=== PATIENT | male | born 1990 | race Caucasian/White ===

== ENCOUNTER 2021-10-01 06:01 | Emergency (ER) | payer SELFPAY ==
[2021-10-01] VITALS (23 sets, daily range): BP systolic 144–169; BP diastolic 80–101; PULSE 80–103; RESP 16–24; TEMP 36.2; O2SAT 95–99
--- NOTE | 2021-10-01 06:07 | W.ED.GENAD ---
Discharge Plan Disposition Patient Disposition: HOME Condition: Improving Discharge Details Clinical Impression: Enteritis Primary Care Provider: Unknown,Unknown ED Provider: Jaguar Chavis Home Meds and New Rx's Prescriptions: New sucralfate [Carafate] 1 gram tablet 1 g PO BID 30 Days Qty: 60 RF: 0 pantoprazole [Protonix] 20 mg tablet,delayed release (DR/EC) 20 mg PO QHS Qty: 30 RF: 0 Continued venlafaxine 225 mg Tablet Extended Release 24hr 225 mg PO HS RF: 0 Discharge Instructions Additional Instructions: Clear liquid progressing to full liquid diet today. May slowly progress to bland diet as tolerated. As we discussed, I recommend you avoid fatty, fried, heavily acidic foods as tomato sauce. We will extract her team to arrange follow-up for you in general surgery clinic this week. You should receive a phone call, but the office #[phone]. We will also to get you a nonurgent follow-up with your primary care at the [facility]. Take medications as prescribed. Protonix to be taken after dinner/before bed. Return if you develop a fever, vomiting, abdominal distention or any other acute concerns. Medical Decision Making <Rocky Chang MD - Last Filed: 10/01/21 08:00> Severely tender abdominal exam that does not localize to any particular quadrant. He is slightly tachycardic and hypertensive. He is afebrile. IV established and fluids started. Morphine given for pain. Laboratory studies sent. CT scan of abdomen pelvis ordered. Patient's labs are fine. Normal lipase, LFTs, WBC and lactic acid. Urine negative. Morphine helped but pain coming back. CT done but not read. Signed out to Dr[facility] plan that is CT negative give IV Protonix and oral Carafate for presumed acid related disease. Patient aware of plan. <Jaguar Chavis MD - Last Filed: 10/01/21 08:39> Patient's CAT scan reveals mucosal thickening and submucosal fat deposition in the duodenum and proximal jejunum. Mildly dilated mid small bowel loops. Colon unremarkable and appendix unremarkable. Enlarged lymph nodes noted. Differential diagnosis includes chronic inflammatory enteritis, intestinal lymphangiectasia. Would also consider etiology such as Crohn's disease. Will continue with Dr. Chang's plan for PPI and Carafate. We will arrange outpatient follow-up with general surgery clinic this week for consideration of upper GI endoscopy/consultation. Patient stable and appropriate for outpatient management time. HPI <Rocky Chang MD - Last Filed: 10/01/21 08:00> General Mode of arrival: ambulatory. Date/Time Provider Initiated Documentation: 10/01/21 06:07. Limitations to Documentation: no limitations. Information obtained by: patient and RN notes reviewed. HPI Narrative: Patient presents to the ED with upper abdominal pain. Pain began last evening after dinner. It has been constant in nature and described as severe at this point. He has not been able to sleep. Pain radiates straight through to the back. He denies any nausea or vomiting. Does not have shortness of breath but it hurts to take a breath because of his abdominal pain. Denies chest pain, cough, fever. Denies any groin or testicular pain. He denies any urinary symptoms. He has had some pain on and off over the past month but nothing like this. No previous surgeries. Related Data Home Medications Medication Instructions Recorded Confirmed pantoprazole [Protonix] 20 mg PO QHS #30 tab 10/01/21 sucralfate [Carafate] 1 g PO BID 30 Days #60 tab 10/01/21 venlafaxine 225 mg PO HS 10/01/21 10/01/21 Previous Rx's Medication Instructions Recorded pantoprazole [Protonix] 20 mg PO QHS #30 tab 10/01/21 sucralfate [Carafate] 1 g PO BID 30 Days #60 tab 10/01/21 Allergies Allergy/AdvReac Type Severity Reaction Status Date / Time No Known Drug Allergies AdvReac Unverified 10/01/21 06:16 Review of Systems <Rocky Chang MD - Last Filed: 10/01/21 08:00> Narrative: 07/07 Review of Systems completed and is negative except as stated above in HPI (Systems reviewed: Const, Eyes, ENT, Resp, CV, GI, , MSK, Skin, Neuro) PFSH <Rocky Chang MD - Last Filed: 10/01/21 08:00> All Active Problems (Updated 10/01/21 @ 08:36 by Jaguar Chavis MD) Enteritis (Acute) Medical History No significant past medical history Surgical History No significant past surgical history Social History Smoking/Tobacco Use Status: Current every day Tobacco Type: cigarettes Smoking risk assessment performed?: Yes Alcohol Intake: current Alcohol Intake frequency: a few times a month Alcohol type: beer Drug use: Never Substance use type: does not use Do you feel safe at home: Yes Do you feel safe in your relationship?: Yes Exam <Rocky Chang MD - Last Filed: 10/01/21 08:00> Narrative Exam Narrative: Const: Obese male in NAD. HEENT: NC/AT. Normal facial exam. Eyes: Normal conjunctiva and sclera. Neck: Supple. Trachea midline. Lungs: Normal respiratory effort. Lungs are clear. Cor: RRR without murmur/gallop. Good radial pulses. GI: Firm abdomen but not distended. Diffusely tender throughout with voluntary guarding. Neuro: A+O x 3. Normal speech, mentation, gait. Cranial nerves II - XII grossly intact. No gross motor or sensory deficit. Ext: No C/C/E. Skin: Warm and dry without rash. Sign Out <Rocky Chang MD - Last Filed: 10/01/21 08:00> Sign Out Data: Sign Out Comment: pending CT read and dispo Last updated by Rocky Chang MD at 10/01/21 08:01
--- NOTE | 2021-10-01 06:15 | DI.CT_ITS ---
Exam(s) CT ABDOMEN PELVIS W EXAM: CT ABDOMEN PELVIS W CLINICAL HISTORY: upper abdominal pain. TECHNIQUE: Imaging Protocol: Axial computed tomography images with coronal and sagittal reformatted images were created and reviewed CONTRAST MATERIAL: Intravenous: Omnipaque 350 Contrast volume:100 ml Oral: / no COMPARISON: No exams were available for comparison FINDINGS: ABDOMEN: Lung Bases: Normal where visualized. Liver: Normal density. No measurable mass. Gallbladder and biliary tract: No radiodense calculus or dilation. Pancreas: Normal density, no abnormal calcifications or inflammatory process. Spleen: Normal. Kidneys: Normal size, contour and axis. No radiodense stones or obstructive uropathy. No masses seen. Adrenal glands: No masses seen. Abdominal Aorta: Abdominal portion non-dilated. Bowel: Mild dilatation jejunum. Submucosal fat deposition in the duodenum and proximal jejunum. The findings could represent enteritis. There are multiple mildly enlarged mesenteric lymph nodes. PELVIS: Bladder: Nearly empty. Apparent wall thickening versus under distention.. No calculi.No focal mass. Bowel: No obstruction or bowel wall thickening. Appendix normal. Peritoneal cavity: No ascites, collection or free air. Bones: Within normal limits for age. Reproductive organs: Within normal limits. Impression: Mildly dilated proximal small bowel wall thickening and mesenteric lymph node enlargement which could indicate enteritis. No definite evidence of obstruction. RADIATION DOSE DELIVERED: 1,291.21mGy.cm Total DLP DATA REPOSITORY: All CT scans at this facility are submitted to the National Radiology Data Registry (NRDR) Dose Index Registry (DIR) with the [employer] (ACR). RADIATION OPTIMIZATION: All CT scans at this facility use at least one of these dose optimization te chniques: automated exposure control; mA and/or kV adjustment per patient size (includes targeted exa ms where dose is matched to clinical indication); or iterative reconstruction.
[2021-10-01] MEDS: Lactated Ringers 1,000 ML 200 ML IV (06:20)
[2021-10-01] MEDS: MORPHine 10 MG/ML VIAL 4 MG IVP (06:30)
[2021-10-01 06:31] LABS: Abs Immature Grans 0.06 10^3/uL (0.0-0.06); Absolute Basophil Count 0.06 10^3/uL (0.0-0.2); Absolute Lymphocyte Count 2.74 10^3/uL (1.2-3.4); Absolute Monocyte Count 1.03 10^3/uL (0.1-0.8); Basophils % 0.6; HGB 15.3 g/dL (13.5-17.5); Immature Grans % 0.6; Lactate 0.7 mmol/L (0.6-1.4); Lymphocytes % 27.7; MCH 31.4 pg (27.0-33.0); MCHC 33.3 % (32.0-36.0); MCV 94.3 fL (80-95); MPV 9.7 fL (8.0-11.0); Monocytes % 10.4; Neutrophils % 58.7; Nucleated RBC 0 %; Platelet Count 253 10^3/uL (130-400); RBC 4.88 10^6/uL (4.36-5.78); RDW-SD 41.8 fL; WBC 9.89 10^3/uL (4.4-10.8)
[2021-10-01 06:35] LABS: Bilirubin Negative (Negative); Blood Negative (Negative); Clarity Clear (Clear); Glucose Negative (Negative); Ketones Negative (Negative); Leukocyte Esterase Negative (Negative); Nitrite Negative (Negative); Specific Gravity 1.015 (1.005-1.025); Urobilinogen 0.2 EU/dL (Up TO 0.2); pH 6.5 (5-8)
[2021-10-01] MEDS: Omnipaque 350 MG/ML 100 ML BTL IJ (06:41)
[2021-10-01 06:48] LABS: ALT 54 U/L (16-63); AST 24 U/L (15-37); Alkaline Phosphatase 81 U/L (46-116); BUN 15 mg/dL (7-18); Bilirubin, Total 0.4 mg/dL (0.2-1.0); Calcium 8.1 mg/dL (8.5-10.1); Chloride 103 mmol/L (98-107); Glucose 99 mg/dL (74-106); Lipase 89 U/L (73-393); Potassium 3.7 mmol/L (3.5-5.1); Sodium 140 mmol/L (136-145); Total Protein 7.5 g/dL (6.4-8.2)
--- NOTE | 2021-10-01 08:00 | DI.VRAD_ITS ---
Addendum created by Rick Whiting MD on 10/01/2021 8:05:51 AM EST: This report contains findings that may be critical to patient care. The findings were verbally communicated via telephone conference with Dr Chavis at 8:02 AM EST on 10/01/2021. The findings were acknowledged and understood. Initial report created on 10/01/2021 8:00:40 AM EST: PROCEDURE INFORMATION: Exam: CT Abdomen And Pelvis With Contrast Exam date and time: 10/01/2021 6:24 AM Age: 31 years old Clinical indication: Other: Upper abd pain TECHNIQUE: Imaging protocol: Computed tomography of the abdomen and pelvis with contrast. COMPARISON: No relevant prior studies available. FINDINGS: Liver: Hepatic fatty infiltration. Gallbladder and bile ducts: Normal. No calcified stones. No ductal dilation. Pancreas: Normal. No ductal dilation. Spleen: Prominent spleen measuring 14 cm. Adrenal glands: Normal. No mass. Kidneys and ureters: Normal. No hydronephrosis. Stomach and bowel: Mucosal thickening and submucosal fat deposition in the duodenum and proximal jejunum. Mildly dilated mid small bowel loops. No mucosal thickening of the colon. Appendix: Normal appendix. Intraperitoneal space: No free fluid or free air. Vasculature: Unremarkable. No abdominal aortic aneurysm. Lymph nodes: Mildly enlarged mesenteric lymph nodes and mesenteric stranding. Urinary bladder: Bladder wall thickening. Reproductive: Unremarkable as visualized. Bones/joints: Unremarkable. No acute fracture. Soft tissues: Unremarkable. IMPRESSION: 1. Mucosal thickening of the proximal small bowel which may reflect chronic inflammatory enteritis or a protein losing enteropathy such as intestinal lymphangiectasia. There are mildly dilated mid small bowel loops which may reflect ileus or partial obstruction. 2. Enlarged mesenteric lymph nodes which can be seen in the setting of mesenteric adenitis or mesenteric panniculitis. Follow-up recommended. 3. Mild splenomegaly. 4. Bladder wall thickening. Correlate for cystitis. Dictated and Authenticated by: Rick Whiting MD. Ordering:ERASTO Hidalgo MD
--- NOTE | 2021-10-01 08:27 | NUR.NOTE ---
Addendum entered by Julisa Clark 10/01/21 08:40: Referral given to Care Management to sent referral to [facility], for proximal bowel thickening/abd pain, non urgent appt. Julisa Clark Original Note: Referral [facility] for follow up within 1 week for proximal bowel thickening/abd pain. Julisa Clark Nursing Note:
[2021-10-01] MEDS: Pantoprazole 40 MG VIAL IVP (09:08)
== END 2021-10-01 09:30 | disposition home or self-care (01) ==
PROVIDERS: Emergency Medicine; Emergency Provider Emergency Medicine
DX: K52.9 Noninfective gastroenteritis and colitis, unspecified (principal); R00.0 Tachycardia, unspecified; R10.9 Unspecified abdominal pain; R03.0 Elevated blood-pressure reading, without diagnosis of hypertension
CPT/HCPCS: 36415; 80053; 83690; 96361; 96374; 96375; 96376; 99285; 74177; 81003; 83605; 85025; 99284; J2270; J3490

== ENCOUNTER 2021-10-06 02:46 | Emergency (ER) | payer OTHER, SELFPAY ==
[2021-10-06 02:52] VITALS: BP 138/94; PULSE 102; RESP 18; TEMP 36.2; O2SAT 99
--- NOTE | 2021-10-06 02:55 | ED.GENADUL_ITS ---
Discharge Plan Disposition Patient Disposition: HOME Condition: Improving Discharge Details Clinical Impression: Abdominal pain Primary Care Provider: Unknown,Unknown ED Provider: Rocky Chang and New Rx's Prescriptions: New dicyclomine 20 mg tablet 20 mg PO QID PRN (Reason: intestinal cramps) Qty: 40 RF: 0 Continued venlafaxine 225 mg Tablet Extended Release 24hr 225 mg PO HS RF: 0 pantoprazole [Protonix] 20 mg tablet,delayed release (DR/EC) 20 mg PO QHS Qty: 30 RF: 0 Changed sucralfate [Carafate] 1 gram tablet 1 g PO QID 30 Days Qty: 40 RF: 0 Discharge Instructions Instructions: Abdominal Pain (ED) Additional Instructions: Use coupons provided to get your medication and begin taking it. Please follow- up with primary care next week. If any issues with prescription or primary care follow-up contact care management for assistance. Return to ED for new or worsening pain, fever, vomiting. Referrals: Care Management [Provider Group] Medical Decision Making Patient returns with episode of sharp, cramping abdominal pain which has been present throughout the evening and night. Seen by me about 5 days ago with similar presentation and abdominal exam. Minimal episodes in between these 2 visits. Eating and drinking more or less normally with no vomiting or diarrhea. 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 Will place IV and recheck laboratory studies. Fluids, ketorolac, Bentyl ordered. Hold off on repeat imaging. Patient's laboratory studies remain normal. Pain resolved and patient much more comfortable after ketorolac and Bentyl. Coupons from [employer] printed out for patient to use at [facility] for pantoprazole, sucralfate and Bentyl. Follow-up with primary care in the next week. Return to ED for fever, vomiting, new or worsening pain, other concerns. HPI General Mode of arrival: ambulatory . Date/Time Provider Initiated Documentation: 10/06/21 02:48 . Limitations to Documentation: no limitations . Information obtained by: patient, RN notes reviewed and old records reviewed . HPI Narrative: Patient returns to ED with sharp crampy abdominal pain, bloated feeling, inability to get comfortable. Patient seen by me about 5 days ago. Laboratory studies unremarkable at that time. CT scan showed suggestion of possible enteritis in the proximal small bowel. 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 He has not followed up with primary care. He has not had constant pain since disch arge. He has had intermittent episodes which resolved. Tonight has been ongoing since about 7 PM. He is able to eat and drink more or less normally. He has had no episodes of vomiting or diarrhea. Pain does radiate to the back at times. He denies having chest pain. He abdominal pain makes it difficult for him to take a deep breath but he does not feel short of breath. No fevers that he is aware of. Related Data Home Medications Medication Instructions Recorded Confirmed venlafaxine 225 mg PO HS 10/01/21 10/06/21 dicyclomine 20 mg PO QID PRN #40 tab 10/06/21 pantoprazole [Protonix] 20 mg PO QHS #30 tab 10/06/21 sucralfate [Carafate] 1 g PO QID 30 Days #40 tab 10/06/21 Previous Rx's Medication Instructions Recorded dicyclomine 20 mg PO QID PRN #40 tab 10/06/21 pantoprazole [Protonix] 20 mg PO QHS #30 tab 10/06/21 sucralfate [Carafate] 1 g PO QID 30 Days #40 tab 10/06/21 Allergies Allergy/AdvReac Type Severity Reaction Status Date / Time No Known Drug Allergies AdvReac Unverified 10/06/21 02:58 General MARIZA: 3 Review of Systems Narrative: As documented in HPI otherwise negative as below. Const: no fever, chills, weakness Resp: no cough, SOB, pleuritic pain CV: no CP, diaphoresis, edema, syncope GI: no nausea, vomiting, diarrhea Neuro: no headache, numbness, focal weakness, confusion PFSH All Active Problems (Updated 10/06/21 @ 04:07 by Rocky Chang MD) Enteritis (Acute) Abdominal pain (Acute) Medical History No significant past medical history Surgical History No significant past surgical history Social History Smoking/Tobacco Use Status: Current every day Tobacco Type: cigarettes Smoking risk assessment performed?: Yes Alcohol Intake: current Alcohol Intake frequency: a few times a month Alcohol type: beer Drug use: Never Substance use type: does not use Do you feel safe at home: Yes Do you feel safe in your relationship?: Yes Exam Narrative Exam Narrative: Const: WDWN male appears uncomfortable. HEENT: NC/AT. Normal facial exam. Eyes: Normal conjunctiva and sclera. Neck: Supple. Trachea midline. Lungs: Normal respiratory effort. Cor: RRR. Good radial pulses. GI: Firm but ND. Diffusely tender. Neuro: A+O x 3. Normal speech, mentation, gait. Cranial nerves II - XII grossly intact. No gross motor or sensory deficit. Ext: No C/C/E. Skin: Warm and dry without rash.
[2021-10-06] MEDS: Ketorolac 30 MG/ML VIAL IVP (03:13)
[2021-10-06] MEDS: Lactated Ringers 1,000 ML 1000 ML IV (03:13)
[2021-10-06] MEDS: Dicyclomine 20 MG TAB PO (03:13)
[2021-10-06 03:18] LABS: Abs Immature Grans 0.03 10^3/uL (0.0-0.06); Absolute Basophil Count 0.04 10^3/uL (0.0-0.2); Absolute Eosinophil Count 0.21 10^3/uL (0.0-0.7); Absolute Lymphocyte Count 2.38 10^3/uL (1.2-3.4); Absolute Monocyte Count 0.74 10^3/uL (0.1-0.8); Absolute Neutrophil Count 4.57 10^3/uL (1.2-6.7); Basophils % 0.5; Eosinophils % 2.6; HGB 15.9 g/dL (13.5-17.5); Immature Grans % 0.4; Lymphocytes % 29.9; MCH 31.4 pg (27.0-33.0); MCHC 33.8 % (32.0-36.0); MCV 92.7 fL (80-95); MPV 9.5 fL (8.0-11.0); Monocytes % 9.3; Neutrophils % 57.3; Nucleated RBC 0 %; Platelet Count 254 10^3/uL (130-400); RBC 5.07 10^6/uL (4.36-5.78); RDW-SD 41.1 fL; WBC 7.97 10^3/uL (4.4-10.8)
[2021-10-06 03:32] LABS: ALT 51 U/L (16-63); AST 30 U/L (15-37); Albumin 3.9 g/dL (3.4-5.0); Alkaline Phosphatase 90 U/L (46-116); Anion Gap 9.7 mmol/L (3-11); BUN 12 mg/dL (7-18); Bilirubin, Direct 0.1 mg/dL (0.0-0.2); Bilirubin, Total 0.3 mg/dL (0.2-1.0); CO2 26.3 mmol/L (21.0-32.0); CREATININE 0.9 mg/dL (0.70-1.30); Calcium 8.4 mg/dL (8.5-10.1); Chloride 103 mmol/L (98-107); Glucose 114 mg/dL (74-106); Lipase 86 U/L (73-393); Potassium 4.1 mmol/L (3.5-5.1); Sodium 139 mmol/L (136-145); Total Protein 7.3 g/dL (6.4-8.2)
[2021-10-06 04:17] VITALS: BP 132/76; PULSE 64; RESP 18; O2SAT 99
== END 2021-10-06 04:16 | disposition home or self-care (01) ==
PROVIDERS: Emergency Provider Emergency Medicine
DX: R10.9 Unspecified abdominal pain (principal)
CPT/HCPCS: 80048; 80076; 83690; 96361; 96374; 99284; 85025; 99283; J1885

== ENCOUNTER 2021-11-26 03:10 | Emergency (ER) | payer OTHER, SELFPAY ==
[2021-11-26] VITALS (14 sets, daily range): BP systolic 126–146; BP diastolic 75–98; PULSE 77–102; RESP 20; TEMP 36.8; O2SAT 96–98
[2021-11-26 03:39] LABS: Abs Immature Grans 0.03 10^3/uL (0.0-0.06); Absolute Basophil Count 0.04 10^3/uL (0.0-0.2); Absolute Monocyte Count 0.73 10^3/uL (0.1-0.8); Absolute Neutrophil Count 3.59 10^3/uL (1.2-6.7); Basophils % 0.5; Eosinophils % 2.7; HCT 45.5 % (40.0-50.0); HGB 15.3 g/dL (13.5-17.5); Immature Grans % 0.4; Lymphocytes % 38.7; MCH 31.3 pg (27.0-33.0); MCHC 33.6 % (32.0-36.0); MPV 9.9 fL (8.0-11.0); Monocytes % 9.7; Nucleated RBC 0 %; Platelet Count 228 10^3/uL (130-400); RBC 4.89 10^6/uL (4.36-5.78); RDW 12.1 % (11.8-14.1); RDW-SD 41.7 fL; WBC 7.49 10^3/uL (4.4-10.8)
[2021-11-26 03:50] LABS: Lipase 84 U/L (73-393)
[2021-11-26] MEDS: Dicyclomine 20 MG TAB PO (03:53)
[2021-11-26 03:54] LABS: ALT 66 U/L (16-63); AST 33 U/L (15-37); Albumin 4.1 g/dL (3.4-5.0); Alkaline Phosphatase 88 U/L (46-116); Anion Gap 7.6 mmol/L (3-11); BUN 12 mg/dL (7-18); Bilirubin, Total 0.5 mg/dL (0.2-1.0); CO2 28.4 mmol/L (21.0-32.0); Calcium 8.3 mg/dL (8.5-10.1); Chloride 106 mmol/L (98-107); Glucose 96 mg/dL (74-106); Potassium 3.8 mmol/L (3.5-5.1); Sodium 142 mmol/L (136-145); Total Protein 7.2 g/dL (6.4-8.2)
[2021-11-26] MEDS: Ketorolac 30 MG/ML VIAL IVP (03:54)
[2021-11-26] MEDS: ACETAMINOPHEN 1,000 MG/100 ML BTL 400 MG IVPB (03:56)
--- NOTE | 2021-11-26 04:00 | RT.EKG_ITS ---
APPROVED REPORT Exam: Resting ECG Reason for Exam: epigastric pain Patient Location: E HR:77 bpm ECG Measurements Heart Rate 77 AXIS NV 142 P 0 QRSd 91 QRS 66 QT 372 T 14 QTc 420 Conclusion Sinus rhythm...normal P axis, V-rate 60- 99 Physician: no stemi, stable
--- NOTE | 2021-11-26 04:01 | W.ED.GENAD ---
Discharge Plan Disposition Patient Disposition: HOME Condition: Good Discharge Details Clinical Impression: Acute epigastric pain Primary Care Provider: Unknown,Unknown ED Provider: Ildefonso Diaz Home Meds and New Rx's Prescriptions: New pantoprazole [Protonix] 40 mg tablet,delayed release (DR/EC) 40 mg PO DAILY Qty: 60 0RF dicyclomine 20 mg tablet 20 mg PO BID Qty: 60 0RF No Action venlafaxine 225 mg Tablet Extended Release 24hr 225 mg PO HS 0RF Discharge Instructions Instructions: Abdominal Pain (ED) Additional Instructions: At this time your laboratory work-up returned normal. Your lipase, gallbladder function, other labs are reassuring. Please avoid greasy foods, spicy foods and tomato-based products. Please take your medications as directed. I have sent them to your pharmacy on file. Please follow-up closely with your surgeon and discuss the scheduled EGD. If you notice any worsening of your symptoms, or any new symptoms such as vomiting, diarrhea, fever, chills, shortness of breath, chest pain, numbness, weakness, or fainting , please return immediately to the emergency department for reevaluation. Please follow up with your primary care provider as soon as possible for reassessment and reevaluation. As always, it was a pleasure participating in your medical care today. Medical Decision Making 31-year-old male with a past medical history of recurrent epigastric pain of unknown etiology presents today for evaluation of recurrent epigastric pain. Patient states that 2 to 3 hours ago he developed a sharp right upper quadrant epigastric tenderness. He states it feels identical but worse than his previous episodes. He does admit to a friend earlier today which was greasy in nature, but denies any other atypical foods. He denies nausea or vomiting. He denies chest pressure of breath. He denies any diarrhea. He denies any urinary complaints. Patient states that he has not been taking the medications that were previous prescribed as he is now out of bed but has been for last few weeks. No other complaints at this time. No other modifying factors. Physical exam demonstrate epigastric tenderness, worse in the right upper quadrant. No flank or CVA tenderness. No lower abdominal tenderness. No distention. Differential includes gastritis, pancreatitis, biliary colic. CT scan has performed on 10/01/2021 demonstrated no significant abnormalities at that time aside for a small amount of small bowel thickening. No other abnormalities. At this time patient is a potential EKG to imaging, will hold off and start with additional therapeutic treatment. Will give Bentyl, NSAIDs, GI cocktail. Will monitor closely and reassess. 4:10 AM Patient was reassessed and he is feeling much better. He is sitting and texting comfortably. Laboratory work-up is returned and is unremarkable. Patient would like to continue to hold off on repeat imaging at this time. We will continue to monitor 4:35 AM Patient was reassessed, patient's pain is nearly completely resolved. Repeat abdominal exam shows no abdominal tenderness. No evidence of epigastric pain, negative Hughes sign. Patient feels much better and would like to continue to hold off on imaging. We discussed risk and benefits of this and the patient understands. Laboratory work-up is returned normal with no significant abnormality. Lipase normal, gallbladder function normal. At this time no evidence of an acute surgical abdomen. No evidence of clinical acute cholecystitis, or other acute surgical intra-abdominal pathologies. At this time with complete resolution of the patient's pain, and unremarkable laboratory work-up I do feel that the patient is stable for discharge. Suspect the patient may have had an episode of acute biliary colic or mild gastritis. Recommend avoidance of aggravating foods, greasy foods, and close follow-up with PCP. Discussed red flags which to return. I have extensively reviewed the treatment plan and discharge instructions with the patient. I have addressed all patient concerns at this time. The patient was made aware of what symptoms to monitor for that would warrant a return to the emergency department. Discussed the plan with the patient, they demonstrate verbal understanding and agreement with our assessment and plan at this time. The documentation in this chart was dictated using [employer] dictation software. Please excuse any dictation errors. HPI General Date/Time Provider Initiated Documentation: 11/26/21 03:13. HPI Narrative: 31-year-old male with a past medical history of recurrent epigastric pain of unknown etiology presents today for evaluation of recurrent epigastric pain. Patient states that 2 to 3 hours ago he developed a sharp right upper quadrant epigastric tenderness. He states it feels identical but worse than his previous episodes. He does admit to a friend earlier today which was greasy in nature, but denies any other atypical foods. He denies nausea or vomiting. He denies chest pressure of breath. He denies any diarrhea. He denies any urinary complaints. Patient states that he has not been taking the medications that were previous prescribed as he is now out of bed but has been for last few weeks. No other complaints at this time. No other modifying factors. Related Data Home Medications Medication Instructions Recorded Confirmed venlafaxine 225 mg tablet,extended 225 mg PO HS 10/01/21 11/26/21 release 24 hr dicyclomine 20 mg tablet 20 mg PO BID #60 tab 11/26/21 pantoprazole 40 mg tablet,delayed 40 mg PO DAILY #60 tab 11/26/21 release (Protonix) Previous Rx's Medication Instructions Recorded dicyclomine 20 mg tablet 20 mg PO BID #60 tab 11/26/21 pantoprazole 40 mg tablet,delayed 40 mg PO DAILY #60 tab 11/26/21 release (Protonix) Allergies Allergy/AdvReac Type Severity Reaction Status Date / Time No Known Drug Allergies AdvReac Unverified 11/26/21 03:23 General Stated Complaint: Abd Prob MARIZA: 3 Review of Systems All systems reviewed & are unremarkable except as noted in HPI and below PFSH All Active Problems (Updated 11/26/21 @ 04:50 by Ildefonso Diaz DO) Acute epigastric pain (Acute) Medical History No significant past medical history Surgical History No significant past surgical history Social History Smoking/Tobacco Use Status: Current every day Tobacco Type: cigarettes Smoking risk assessment performed?: Yes Alcohol Intake: current Alcohol Intake frequency: a few times a month Alcohol type: beer Drug use: Never Substance use type: does not use Current gender identity: male Do you feel safe at home: Yes Do you feel safe in your relationship?: Yes Exam Narrative Exam Narrative: 1.Const: Well-nourished, Well-developed, appearing stated age 2.Eyes: PERRL, no conjunctival injection, and symmetrical lids. 3.ENT: Atraumatic external nose and ears. Moist MM. Neck: Symmetric, trachea midline, No thyromegaly. 4.CVS: +S1/S2, No murmurs or gallops. Peripheral pulses 2+ and equal in all extremities. Brisk capillary refill in all extremities. 5.RESP: Unlabored respiratory effort. Clear to auscultation bilaterally. No wheezes rales or rhonchi 6.GI: Soft, nondistended. No guarding or rebound. Patient does have epigastric tenderness in the left central and right upper regions. Negative Hughes sign, no pain or McBurney's point. Negative Rovsing sign. No flank CVA tenderness. 7.MSK: Normocephalic/Atraumatic, Extremities w/o deformity or ttp No cyanosis or clubbing, Normal movement of all extremities 8.Skin: Warm, Dry. No rashes or lesions. 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 Sensation grossly intact, no focal neurologic deficits. 10.Psych: (AAO) x3. Appropriate mood and affect Course Vital Signs Vital signs: Vital Signs Temperature 36.8 C 11/26/21 03:15 Pulse 102 H 11/26/21 03:15 Respiratory Rate 20 11/26/21 03:15 Blood Pressure 146/98 H 11/26/21 03:15 Pulse Oximetry 97 11/26/21 03:15 Temperature 36.8 C 11/26/21 03:15 Temperature Source Oral 11/26/21 03:15 Pulse 102 H 11/26/21 03:15 Respiratory Rate 20 11/26/21 03:15 Respiratory Effort Non-Labored 11/26/21 03:25 Blood Pressure 146/98 H 11/26/21 03:15 Blood Pressure Position Sitting 11/26/21 03:15 Pulse Oximetry 97 11/26/21 03:15 Oxygen Delivery Method Room Air 11/26/21 03:15 Oxygen Flow Rate 0 11/26/21 03:15 Pain Level 7 11/26/21 03:59 Lab/Test Results Lab/Test Results: Laboratory Tests Range/Units 11/26/21 11/26/21 11/26/21 03:35 03:35 03:35 WBC (4.4-10.8) 10^3/uL 7.49 RBC (4.36-5.78) 10^6/uL 4.89 Hgb (13.5-17.5) g/dL 15.3 Hct (40.0-50.0) % 45.5 MCV (80-95) fL 93.0 MCH (27.0-33.0) pg 31.3 MCHC (32.0-36.0) % 33.6 RDW (11.8-14.1) % 12.1 Plt Count (130-400) 10^3/uL 228 MPV (8.0-11.0) fL 9.9 Immature Gran % 0.4 Neutrophils % 48.0 Lymphocytes % 38.7 Monocytes % 9.7 Eosinophils % 2.7 Basophils % 0.5 Nucleated RBC % % 0 Absolute Neutrophils (1.2-6.7) 10^3/uL 3.59 Absolute Lymphocytes (1.2-3.4) 10^3/uL 2.90 Absolute Monocytes (0.1-0.8) 10^3/uL 0.73 Absolute Eosinophils (0.0-0.7) 10^3/uL 0.20 Absolute Basophils (0.0-0.2) 10^3/uL 0.04 Sodium (136-145) mmol/L 142 Potassium (3.5-5.1) mmol/L 3.8 Chloride (98-107) mmol/L 106 Carbon Dioxide (21.0-32.0) mmol/L 28.4 Anion Gap (3-11) mmol/L 7.6 BUN (7-18) mg/dL 12 Creatinine (0.70-1.30) mg/dL 1.0 Estimated GFR/1.73 m2 (mL/min/1.73m2) >= 60.00 Glucose (74-106) mg/dL 96 Calcium (8.5-10.1) mg/dL 8.3 L Total Bilirubin (0.2-1.0) mg/dL 0.5 AST (15-37) U/L 33 ALT (16-63) U/L 66 H Alkaline Phosphatase (46-116) U/L 88 Total Protein (6.4-8.2) g/dL 7.2 Albumin (3.4-5.0) g/dL 4.1 Lipase (73-393) U/L 84
== END 2021-11-26 05:03 | disposition home or self-care (01) ==
LOC: ER 05:03
PROVIDERS: Emergency Provider Student in an Organized Health Care Education/Training Program
DX: R10.13 Epigastric pain (principal)
CPT/HCPCS: 36415; 80053; 83690; 93005; 96365; 96375; 99284; 85025; 93010; 99283; J0131; J1885

== ENCOUNTER 2022-01-14 00:27 | Emergency (ER) | payer OTHER, SELFPAY ==
[2022-01-14] VITALS (15 sets, daily range): BP systolic 124–139; BP diastolic 75–94; PULSE 69–92; RESP 18; TEMP 36.6; O2SAT 95–100
[2022-01-14] MEDS: Dicyclomine 20 MG TAB PO ×2 (00:50→01:52)
[2022-01-14] MEDS: Ondansetron 4 MG/2 ML VIAL IVP (00:50)
[2022-01-14] MEDS: Ketorolac 30 MG/ML VIAL IVP (00:50)
[2022-01-14 00:51] LABS: Abs Immature Grans 0.01 10^3/uL (0.0-0.06); Absolute Basophil Count 0.04 10^3/uL (0.0-0.2); Absolute Lymphocyte Count 2.94 10^3/uL (1.2-3.4); Absolute Monocyte Count 0.78 10^3/uL (0.1-0.8); Absolute Neutrophil Count 4.48 10^3/uL (1.2-6.7); Basophils % 0.5; Eosinophils % 2.4; HCT 46.6 % (40.0-50.0); HGB 15.5 g/dL (13.5-17.5); Immature Grans % 0.1; Lymphocytes % 34.8; MCH 30.8 pg (27.0-33.0); MCHC 33.3 % (32.0-36.0); MCV 92.5 fL (80-95); MPV 9.9 fL (8.0-11.0); Monocytes % 9.2; Platelet Count 211 10^3/uL (130-400); RBC 5.04 10^6/uL (4.36-5.78); RDW 11.9 % (11.8-14.1); RDW-SD 40.3 fL; WBC 8.45 10^3/uL (4.4-10.8)
[2022-01-14] MEDS: Normal Saline 1,000 ML 1000 ML IV (00:51)
[2022-01-14 01:04] LABS: ALT 62 U/L (16-63); AST 35 U/L (15-37); Albumin 4.3 g/dL (3.4-5.0); Alkaline Phosphatase 102 U/L (46-116); Anion Gap 5.7 mmol/L (3-11); BUN 16 mg/dL (7-18); Bilirubin, Total 0.6 mg/dL (0.2-1.0); CO2 28.3 mmol/L (21.0-32.0); Calcium 8.4 mg/dL (8.5-10.1); Chloride 103 mmol/L (98-107); Glucose 84 mg/dL (74-106); Lipase 76 U/L (73-393); Potassium 3.7 mmol/L (3.5-5.1); Sodium 137 mmol/L (136-145); Total Protein 7.5 g/dL (6.4-8.2)
--- NOTE | 2022-01-14 01:07 | ED.GENADUL_ITS ---
Discharge Plan Disposition Patient Disposition: HOME Condition: Good Discharge Details Clinical Impression: Epigastric discomfort Primary Care Provider: None,None ED Provider: Ildefonso Diaz Home Meds and New Rx's Prescriptions: New dicyclomine 10 mg capsule 10 mg PO BID Qty: 30 0RF pantoprazole [Protonix] 40 mg tablet,delayed release (DR/EC) 40 mg PO DAILY Qty: 90 0RF Continued venlafaxine 225 mg Tablet Extended Release 24hr 225 mg PO HS 0RF Discharge Instructions Instructions: Abdominal Pain (ED) Additional Instructions: At this time your work-up shows no significant abnormalities. Gallbladder, pancreas, electrolytes. As we discussed I suspect it is a combination of increased and/or spicy foods that can exacerbate your symptoms. I have written a new prescription for the Protonix, as well as the Bentyl again. As we discussed, please follow-up closely with your primary care provider to discuss having the EGD performed. If you notice any worsening of your symptoms, or any new symptoms such as vomiting, diarrhea, fever, chills, shortness of breath, chest pain, numbness, weakness, or fainting , please return immediately to the emergency department for reevaluation. Please follow up with your primary care provider as soon as possible for reassessment and reevaluation. As always, it was a pleasure participating in your medical care today. Referrals: Palmira Barraza RN [Emergency Nurse] - Medical Decision Making This is a pleasant 32-year-old male with a past medical history of recurrent epigastric pain. Patient states that about 3 to 4 hours ago he had greasy hot wings, shortly after that he developed a stabbing sensation in his right upper quadrant and epigastric region. It is improved by nothing. It is worsened with food. He denies any vomiting but does admit to nausea. He denies any diarrhea. He denies chest pain, chest pressure, shortness of breath. He denies any urinary complaints. On his last visit he had been prescribed Protonix, as well as some Bentyl, he states that he is run out of these and this seems to be when his symptoms recur. In addition to that he has not been able to follow-up with the recommendations for EGD secondary to insurance reasons. Patient states that his current symptoms are identical to his last few visits where he had the epigastric pain. He denies any other complaints. Exam demonstrates mild epigastric tenderness on palpation, but a negative Hughes sign, no pain at McBurney's point. Patient denies any excessive alcohol intake. Differential is highest for biliary colic or mild pancreatitis. Patient would like to hold off on imaging for the time being as he feels that this feels identical to his previous episodes. We will give GI cocktail, NSAIDs, and Bentyl as this is been notably successful with him in the past. We will monitor closely and reassess. 1:48 AM On reassessment the patient is feeling much better. Pain notably improved. Patient feels well and is requesting to go home. He has been able to tolerate p.o. Laboratory work-up is unremarkable. Repeat exam shows no evidence of an acute surgical abdomen. Suspect patient's symptoms are likely combination of mild gastric ulcer disease, as well as potential biliary colic. Recommend continued avoidance of greasy and spicy foods. Discussed red flags for which to return. I have extensively reviewed the treatment plan and discharge instructions with the patient. I have addressed all patient concerns at this time. The patient was made aware of what symptoms to monitor for that would warrant a return to the emergency department. Discussed the plan with the patient, they demonstrate verbal understanding and agreement with our assessment and plan at this time. The documentation in this chart was dictated using [employer] dictation software. Please excuse any dictation errors. HPI General Date/Time Provider Initiated Documentation: 01/14/22 00:38 . HPI Narrative: This is a pleasant 32-year-old male with a past medical history of recurrent epigastric pain. Patient states that about 3 to 4 hours ago he had greasy hot wings, shortly after that he developed a stabbing sensation in his right upper quadrant and epigastric region. It is improved by nothing. It is worsened with food. He denies any vomiting but does admit to nausea. He denies any diarrhea. He denies chest pain, chest pressure, shortness of breath. He denies any urinary complaints. On his last visit he had been prescribed Protoni x, as well as some Bentyl, he states that he is run out of these and this seems to be when his symptoms recur. In addition to that he has not been able to follow-up with the recommendations for EGD secondary to insurance reasons. Patient states that his current symptoms are identical to his last few visits where he had the epigastric pain. He denies any other complaints. Related Data Home Medications Medication Instructions Recorded Confirmed venlafaxine 225 mg tablet,extended 225 mg PO HS 10/01/21 11/26/21 release 24 hr dicyclomine 10 mg capsule 10 mg PO BID #30 cap 01/14/22 pantoprazole 40 mg tablet,delayed 40 mg PO DAILY #90 tab 01/14/22 release (Protonix) Previous Rx's Medication Instructions Recorded dicyclomine 10 mg capsule 10 mg PO BID #30 cap 01/14/22 pantoprazole 40 mg tablet,delayed 40 mg PO DAILY #90 tab 01/14/22 release (Protonix) Allergies Allergy/AdvReac Type Severity Reaction Status Date / Time No Known Drug Allergies AdvReac Unverified 01/14/22 00:36 General Stated Complaint: Abd Prob MARIZA: 3 Review of Systems All systems reviewed & are unremarkable except as noted in HPI and below PFSH All Active Problems (Updated 01/14/22 @ 01:43 by Ildefonso Diaz DO) Epigastric discomfort (Acute) Medical History No significant past medical history Surgical History No significant past surgical history Social History Smoking/Tobacco Use Status: Current every day Tobacco Type: cigarettes Smoking risk assessment performed?: Yes Alcohol Intake: current Alcohol Intake frequency: a few times a month Alcohol type: beer Drug use: Never Substance use type: does not use Current gender identity: male Do you feel safe at home: Yes Do you feel safe in your relationship?: Yes Exam Narrative Exam Narrative: 1.Const: Well-nourished, Well-developed, appearing stated age 2.Eyes: PERRL, no conjunctival injection, and symmetrical lids. 3.ENT: Atraumatic external nose and ears. Moist MM. Neck: Symmetric, trachea midline, No thyromegaly. 4.CVS: +S1/S2, No murmurs or gallops. Peripheral pulses 2+ and equal in all extremities. Brisk capillary refill in all extremities. 5.RESP: Unlabored respiratory effort. Clear to auscultation bilaterally. No wheezes rales or rhonchi 6.GI: Soft, tenderness in the epigastric region. No tenderness in the lower abdomen. No pain or McBurney's point. Negative Hughes sign. 7.MSK: Normocephalic/Atraumatic, Extremities w/o deformity or ttp No cyanosis or clubbing, Normal movement of all extremities 8.Skin: Warm, Dry. No rashes or lesions. 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 Sensation grossly intact, no focal neurologic deficits. 10.Psych: (AAO) x3. Appropriate mood and affect Course Vital Signs Vital signs: Vital Signs Temperature 36.6 C 01/14/22 00:30 Pulse 92 H 01/14/22 00:30 Respiratory Rate 18 01/14/22 00:30 Blood Pressure 124/94 H 01/14/22 00:30 Pulse Oximetry 100 01/14/22 00:30 Temperature 36.6 C 01/14/22 00:30 Temperature Source Oral 01/14/22 00:30 Pulse 92 H 01/14/22 00:30 Respiratory Rate 18 01/14/22 00:30 Respiratory Effort 01/14/22 00:33 Blood Pressure 124/94 H 01/14/22 00:30 Blood Pressure Position Supine 01/14/22 00:30 Pulse Oximetry 100 01/14/22 00:30 Oxygen Delivery Method Room Air 01/14/22 00:30 Oxygen Flow Rate 0 01/14/22 00:30 Pain Level 9 01/14/22 00:30 Lab/Test Results Lab/Test Results: Laboratory Tests Range/Units 01/14/22 01/14/22 00:40 00:40 WBC (4.4-10.8) 10^3/uL 8.45 RBC (4.36-5.78) 10^6/uL 5.04 Hgb (13.5-17.5) g/dL 15.5 Hct (40.0-50.0) % 46.6 MCV (80-95) fL 92.5 MCH (27.0-33.0) pg 30.8 MCHC (32.0-36.0) % 33.3 RDW (11.8-14.1) % 11.9 Plt Count (130-400) 10^3/uL 211 MPV (8.0-11.0) fL 9.9 Immature Gran % 0.1 Neutrophils % 53.0 Lymphocytes % 34.8 Monocytes % 9.2 Eosinophils % 2.4 Basophils % 0.5 Nucleated RBC % (0.0-0.3) % 0.0 Absolute Neutrophils (1.2-6.7) 10^3/uL 4.48 Absolute Lymphocytes (1.2-3.4) 10^3/uL 2.94 Absolute Monocytes (0.1-0.8) 10^3/uL 0.78 Absolute Eosinophils (0.0-0.7) 10^3/uL 0.20 Absolute Basophils (0.0-0.2) 10^3/uL 0.04 Sodium (136-145) mmol/L 137 Potassium (3.5-5.1) mmol/L 3.7 Chloride (98-107) mmol/L 103 Carbon Dioxide (21.0-32.0) mmol/L 28.3 Anion Gap (3-11) mmol/L 5.7 BUN (7-18) mg/dL 16 Creatinine (0.70-1.30) mg/dL 1.0 Estimated GFR/1.73 m2 (mL/min/1.73m2) >= 60.00 Glucose (74-106) mg/dL 84 Calcium (8.5-10.1) mg/dL 8.4 L Total Bilirubin (0.2-1.0) mg/dL 0.6 AST (15-37) U/L 35 ALT (16-63) U/L 62 Alkaline Phosphatase (46-116) U/L 102 Total Protein (6.4-8.2) g/dL 7.5 Albumin (3.4-5.0) g/dL 4.3 Lipase (73-393) U/L 76
== END 2022-01-14 01:56 | disposition home or self-care (01) ==
PROVIDERS: Emergency Provider Student in an Organized Health Care Education/Training Program
DX: R10.13 Epigastric pain (principal)
CPT/HCPCS: 36415; 80053; 83690; 96361; 96374; 96375; 99284; 85025; 99283; J1885; J2405

== ENCOUNTER 2022-04-27 00:24 | Emergency (ER) | payer OTHER, SELFPAY ==
[2022-04-27] VITALS (24 sets, daily range): BP systolic 132–155; BP diastolic 82–95; PULSE 64–85; RESP 8–20; TEMP 36.7; O2SAT 97–100
--- NOTE | 2022-04-27 01:07 | ED.GENADUL_ITS ---
Discharge Plan Disposition Patient Disposition: HOME Condition: Improving Discharge Details Clinical Impression: Enteritis, Lymphadenopathy, mesenteric Primary Care Provider: None,None ED Provider: Juan Jose Lama Home Meds and New Rx's Prescriptions: New pantoprazole 40 mg tablet,delayed release (DR/EC) 40 mg PO DAILY Qty: 30 0RF No Action venlafaxine 225 mg Tablet Extended Release 24hr 225 mg PO HS dicyclomine 10 mg capsule 10 mg PO BID Qty: 30 0RF pantoprazole [Protonix] 40 mg tablet,delayed release (DR/EC) 40 mg PO DAILY Qty: 90 0RF Discharge Instructions Instructions: Enteritis (ED) Additional Instructions: Care management team will be in contact to establish GI referral for [facility] within the next 1 to 2 weeks. Please take medications as prescribed. Please return to the emergency department for any worsening symptoms. Medical Decision Making 32-year-old male history of gastritis presents with epigastric abdominal pain over the past day. Endorses running out of his pantoprazole. No abdominal surgeries in the past no history of heavy drinking. Patient is hemodynamically stable, nonperitoneal examination. Afebrile. Bedside ultrasound showing some gallbladder sludge/stones with gallbladder thickness of 0.25 cm, no pericholecystic fluid and negative Hughes sign. Likely gastritis versus enteritis versus less likely pancreatitis versus biliary colic. Screening labs fluids antiemetics GI cocktail close reassessment likely will be discharged home with GI referral. Consider need for upper endoscopy and H. pylori testing. 02:23 patient resting comfortably no acute distress did get some relief from medications however still having persistent epigastric pain. Have added CT abdomen pelvis. Disposition pending imaging results. Labs unremarkable at this time. No vomiting in department 5: 37 patient resting comfortably no acute distress. Greatly improved after medications. Evidence of chronic appearing enteritis and mesenteric lymphaden opathy. Will be given GI referral. Will fill prescription for pantoprazole. Home care instructions and return precautions given HPI General Date/Time Provider Initiated Documentation: 04/27/22 00:27 . HPI Narrative: 32-year-old male history of gastritis presents with epigastric discomfort over the past day, endorses running out of his pantoprazole. Denies history of abdominal surgery. We will schedule in the past for upper endoscopy however due to insurance issues never proceeded. Denies heavy drinking. Related Data Home Medications Medication Instructions Recorded Confirmed venlafaxine 225 mg tablet,extended 225 mg PO HS 10/01/21 04/27/22 release 24 hr dicyclomine 10 mg capsule 10 mg PO BID #30 caps 01/14/22 pantoprazole 40 mg tablet,delayed 40 mg PO DAILY #90 tabs 01/14/22 04/27/22 release (Protonix) pantoprazole 40 mg tablet,delayed 40 mg PO DAILY #30 tabs 04/27/22 release Previous Rx's Medication Instructions Recorded dicyclomine 10 mg capsule 10 mg PO BID #30 caps 01/14/22 pantoprazole 40 mg tablet,delayed 40 mg PO DAILY #90 tabs 01/14/22 release (Protonix) pantoprazole 40 mg tablet,delayed 40 mg PO DAILY #30 tabs 04/27/22 release Allergies Allergy/AdvReac Type Severity Reaction Status Date / Time No Known Drug Allergies AdvReac Unverified 04/27/22 00:37 General Stated Complaint: Abd Prob MARIZA: 3 Review of Systems Narrative: Review of Systems Constitutional: negative Eyes: negative ENT: negative Cardiovascular: negative Respiratory: negative Gastrointestinal: Abdominal pain : negative Musculoskeletal: negative Skin: negative Neurologic: negative Psych: negative PFSH All Active Problems (Updated 04/27/22 @ 05:40 by Juan Jose Lama MD) Enteritis (Acute) Lymphadenopathy, mesenteric (Acute) Medical History No significant past medical history Surgical History No significant past surgical history Social History Smoking/Tobacco Use Status: Current every day Tobacco Type: cigarettes Smoking risk assessment performed?: Yes Alcohol Intake: current Alcohol Intake frequency: a few times a month Alcohol type: beer Drug use: Never Substance use type: does not use Current gender identity: male Do you feel safe at home: Yes Do you feel safe in your relationship?: Yes Exam Narrative Exam Narrative: Physical Examination General: alert, awake, cooperative, resting comfortably, no acute distress HEENT: normocephalic, atraumatic; PERRL, EOM intact, conjunctiva normal; no nasal discharge; moist mucous membranes, oral and pharyngeal mucosa normal, tolerating secretions Neck: supple, trachea midline; full ROM Chest: normal to inspection Respiratory: normal respiratory effort, speaking in full sentences, clear to auscultation, no wheezing, rales or rhonchi Cardiac: regular rate, regular rhythm, S1S2 intact, no murmurs rubs or gallops GI: abdomen soft, non-tender, non-distended; no palpable mass or hepatosplenomegaly Skin: no lesions, rashes or trauma appreciated Neuro: AAOx3, normal speech, moving all extremities Psych: Appropriate mood and affect Course Vital Signs Vital signs: Vital Signs Temperature 36.7 C 04/27/22 00:30 Pulse 77 04/27/22 00:30 Respiratory Rate 18 04/27/22 00:30 Blood Pressure 140/85 04/27/22 00:30 Pulse Oximetry 100 04/27/22 00:30 Temperature 36.7 C 04/27/22 00:30 Temperature Source Temporal Artery Scan 04/27/22 00:30 Pulse 77 04/27/22 00:30 Respiratory Rate 18 04/27/22 00:30 Respiratory Effort Non-Labored 04/27/22 00:35 Blood Pressure 140/85 04/27/22 00:30 Blood Pressure Position Supine 04/27/22 00:30 Pulse Oximetry 100 04/27/22 00:30 Oxygen Delivery Method Room Air 04/27/22 00:30 Oxygen Flow Rate 0 04/27/22 00:30 Pain Level 9 04/27/22 00:30
[2022-04-27 01:26] LABS: Abs Immature Grans 0.02 10^3/uL (0.0-0.06); Absolute Basophil Count 0.03 10^3/uL (0.0-0.2); Absolute Eosinophil Count 0.22 10^3/uL (0.0-0.7); Absolute Lymphocyte Count 2.59 10^3/uL (1.2-3.4); Basophils % 0.4; Eosinophils % 3.2; HCT 43.8 % (40.0-50.0); Immature Grans % 0.3; Lymphocytes % 37.2; MCH 31.8 pg (27.0-33.0); MCHC 34.2 % (32.0-36.0); MCV 93 fL (80-95); MPV 10.6 fL (8.0-11.0); Monocytes % 10.1; Neutrophils % 48.8; Platelet Count 208 10^3/uL (130-400); RBC 4.71 10^6/uL (4.36-5.78); RDW 12.2 % (11.8-14.1); RDW-SD 42.1 fL; WBC 6.96 10^3/uL (4.4-10.8)
[2022-04-27] MEDS: Mylanta Suspension 30 ML CUP PO (01:27)
[2022-04-27] MEDS: Famotidine 20 MG/2 ML VIAL IVP (01:27)
[2022-04-27] MEDS: Lidocaine 2% Viscous 15 ML CUP PO (01:27)
[2022-04-27] MEDS: Normal Saline 1,000 ML 1000 ML IV (01:27)
[2022-04-27] MEDS: Ondansetron 4 MG/2 ML VIAL IVP (01:28)
[2022-04-27] MEDS: PANTOPRAZOLE 80 MG in Normal Saline 100 ML 10 MG IV (01:28)
[2022-04-27 01:41] LABS: ALT 42 U/L (16-63); AST 22 U/L (15-37); Alkaline Phosphatase 97 U/L (46-116); Anion Gap 4.4 mmol/L (3-11); BUN 13 mg/dL (7-18); Bilirubin, Total 0.3 mg/dL (0.2-1.0); CO2 29.6 mmol/L (21.0-32.0); CREATININE 0.9 mg/dL (0.70-1.30); Calcium 8.7 mg/dL (8.5-10.1); Chloride 103 mmol/L (98-107); Glucose 88 mg/dL (74-106); Lipase 76 U/L (73-393); Sodium 137 mmol/L (136-145); Total Protein 7.4 g/dL (6.4-8.2)
--- NOTE | 2022-04-27 02:15 | DI.CT_ITS ---
Exam(s) CT ABDOMEN PELVIS WO EXAM: CT ABDOMEN PELVIS WO CLINICAL HISTORY: epigastric abd pain. TECHNIQUE: Imaging Protocol: Axial computed tomography images with coronal and sagittal reformatted images were created and reviewed. Oral: yes / no COMPARISON: CT CT ABDOMEN PELVIS W from 10/01/2021 FINDINGS: Exam is somewhat limited without oral and IV contrast. Lung Bases: Normal where visualized. Liver: Mild fatty infiltration. No measurable mass. Gallbladder and biliary tract: No radiodense calculus or dilation. Pancreas: Normal density, no abnormal calcifications or inflammatory process. Spleen: Normal. Upper limits of normal size at 13 cm in length. Kidneys: Normal size, contour and axis. No radiodense stones or obstructive uropathy. No masses seen. Adrenal glands: No masses seen. Lymph nodes: Multiple enlarged left upper quadrant mesenteric lymph nodes with mild increase in size compared to prior. Abdominal Aorta: Abdominal portion non-dilated. Bladder: Symmetric distention, no gross wall thickening. Bowel: Mildly dilated loops of small bowel are again noted in the left side of the abdomen without de finite transition point. This is similar in location and appearance to the previous exam. There is again noted to be some subcu mucosal fat deposition in the proximal jejunum. There are multiple mayte cent enlarged mesenteric lymph nodes. Appendix normal. Colon unremarkable. Peritoneal cavity: No ascites, collection or mesenteric inflammatory response. Reproductive organs: Within normal limits. Bones: Within normal limits. IMPRESSION: Similar appearance dilated left upper quadrant small bowel in adjacent mesenteric lymphadenopathy. T he findings are suspicious for chronic inflammatory process or protein losing enteropathy. RADIATION DOSE DELIVERED: 904.46mGy.cm Total DLP DATA REPOSITORY: All CT scans at this facility are submitted to the National Radiology Data Registry (NRDR) Dose Index Registry (DIR) with the [employer] (A[employer]). RADIATION OPTIMIZATION: All CT scans at this facility use at least one of these dose optimization te chniques: automated exposure control; mA and/or kV adjustment per patient size (includes targeted exa ms where dose is matched to clinical indication); or iterative reconstruction.
[2022-04-27 02:49] LABS: Bilirubin Negative (Negative); Blood Negative (Negative); Clarity Clear (Clear); Glucose Negative (Negative); Ketones Negative (Negative); Leukocyte Esterase Negative (Negative); Nitrite Negative (Negative); Specific Gravity 1.015 (1.005-1.025); Urobilinogen 0.2 EU/dL (Up TO 0.2)
--- NOTE | 2022-04-27 05:34 | DI.VRAD_ITS ---
PROCEDURE INFORMATION: Exam: CT Abdomen And Pelvis Without Contrast Exam date and time: 04/27/2022 2:39 AM Age: 32 years old Clinical indication: Abdominal pain; Epigastric; Additional info: Epigastric pain TECHNIQUE: Imaging protocol: Computed tomography of the abdomen and pelvis without contrast. Radiation optimization: All CT scans at this facility use at least one of these dose optimization techniques: automated exposure control; mA and/or kV adjustment per patient size (includes targeted exams where dose is matched to clinical indication); or iterative reconstruction. COMPARISON: CT ABDOMEN PELVIS W 10/01/2021 6:31 AM FINDINGS: Lungs: Visualized lung bases are clear. No pleural effusions. Liver: Mild hepatic steatosis. Gallbladder and bile ducts: Unremarkable. No calcified gallstones. No intrahepatic or extrahepatic biliary ductal dilation. Pancreas: Unremarkable. Spleen: The spleen is again noted to be mildly enlarged, measuring 13.6 cm in maximum diameter (previously 13.9 cm). Otherwise unremarkable. Adrenal glands: Unremarkable. Kidneys and ureters: The kidneys are normal and symmetric in size, without hydronephrosis, calcifications, or contour-deforming masses. No calcifications are identified in the ureters, which are normal in caliber. Stomach and bowel: The stomach is largely decompressed and therefore not well assessed. Increased submucosal fat deposition is again noted in the duodenum and in the proximal jejunum, which are otherwise difficult to characterize as they are essentially collapsed, though mucosal thickening is suspected. There is persistent haziness and stranding of the mesenteric fat adjacent to these abnormal-appearing bowel loops. Distal to this are several relatively prominent jejunal loops which are distended with fluid, nonspecific. A similar appearance of the bowel was present on the 10/01/[address] Appendix: A nondilated appendix is identified. Intraperitoneal space: Unremarkable. No ascites, fluid collection, or pneumoperitoneum. Retroperitoneal space: Unremarkable. No retroperitoneal collection or mass. Vasculature: Unremarkable. The abdominal aorta is normal in caliber. Lymph nodes: Multiple mildly enlarged and top-normal size mesenteric lymph nodes are again identified in the left upper quadrant, the largest measuring up to 1.4 cm on axial image 43 (previously 1.1 cm). Urinary bladder: Moderately distended. Otherwise unremarkable. Reproductive: Unremarkable as visualized. Bones/joints: No suspicious osseous lesions. Soft tissues: Tiny fat-containing umbilical hernia. IMPRESSION: 1. Persistent mucosal thickening in the proximal small bowel with adjacent mesenteric fat stranding, similar to a previous CT from 10/01/2021. Primary differential considerations include a chronic inflammatory enteritis or a protein-losing enteropathy, as suggested previously. 2. Left upper quadrant mesenteric lymphadenopathy, nonspecific though suspected to be reactive, slightly increased since 10/01/2021. 3. Persistent mild splenomegaly. Dictated and Authenticated by: Lesly Perez MD. Ordering:PAYTON Ingram MD
--- NOTE | 2022-04-27 05:46 | NUR.NOTE ---
Referral to Care Management for referral to [facility] for abd pain work up in 1-2 weeks.Nursing Note:
--- NOTE | 2022-04-28 11:18 | CMACTNOTE_ITS ---
- If Service Date Differs Date of service: 04/27/22 Time of Service: 11:18 Care Management Activity Note Kavon is seen in the ED for epigastric pain. At the request of ED provider, CM completes a referral to [facility] on 04/27/22 but the referral is awaiting the provider's signature. Once the referral is signed, it will be faxed to [facility].
== END 2022-04-27 05:49 | disposition home or self-care (01) ==
PROVIDERS: Emergency Provider Emergency Medicine
DX: K52.9 Noninfective gastroenteritis and colitis, unspecified (principal); R59.0 Localized enlarged lymph nodes; F17.210 Nicotine dependence, cigarettes, uncomplicated
CPT/HCPCS: 80053; 83690; 96365; 96375; 99284; 74176; 81003; 85025; J2405

== ENCOUNTER 2022-08-21 05:19 | Emergency (ER) | payer OTHER, SELFPAY ==
[2022-08-21 05:23] VITALS: BP 161/100; PULSE 81; RESP 16; TEMP 36.8; O2SAT 100
[2022-08-21] MEDS: Normal Saline 1,000 ML 1000 ML IV (05:45)
[2022-08-21 05:47] LABS: Abs Immature Grans 0.01 10^3/uL (0.0-0.06); Absolute Basophil Count 0.04 10^3/uL (0.0-0.2); Absolute Eosinophil Count 0.14 10^3/uL (0.0-0.7); Absolute Lymphocyte Count 2.55 10^3/uL (1.2-3.4); Absolute Neutrophil Count 4.25 10^3/uL (1.2-6.7); Basophils % 0.5; Eosinophils % 1.8; HCT 46.3 % (40.0-50.0); HGB 15.6 g/dL (13.5-17.5); Immature Grans % 0.1; Lymphocytes % 33.6; MCH 31.1 pg (27.0-33.0); MCHC 33.7 % (32.0-36.0); MCV 92 fL (80-95); Monocytes % 7.9; Neutrophils % 56.1; Platelet Count 222 10^3/uL (130-400); RBC 5.02 10^6/uL (4.36-5.78); RDW 12.1 % (11.8-14.1); RDW-SD 41.2 fL; WBC 7.59 10^3/uL (4.4-10.8)
[2022-08-21] MEDS: Famotidine 20 MG/2 ML VIAL IVP (05:50)
[2022-08-21] MEDS: Ondansetron 4 MG/2 ML VIAL IVP (05:50)
--- NOTE | 2022-08-21 05:50 | ED.GENADUL_ITS ---
Discharge Plan Disposition Patient Disposition: Home Condition: Improving Discharge Details Clinical Impression: Gastritis Primary Care Provider: None,None ED Provider: Juan Jose Lama Home Meds and New Rx's Prescriptions: New pantoprazole 40 mg tablet,delayed release (DR/EC) 40 mg PO DAILY Qty: 30 0RF No Action venlafaxine 225 mg Tablet Extended Release 24hr 225 mg PO HS Discharge Instructions Instructions: Gastritis (ED) Additional Instructions: We are providing follow-up referral to [facility] gastroenterology team. Please follow-up with your primary care physician as well. Return to the emergency department for any worsening symptoms Medical Decision Making 31-year-old male history of recurrent abdominal pain presents with epigastric abdominal discomfort rating to his back associate with nausea no vomiting, normal bowel movements. Afebrile nontoxic however appears mildly uncomfortable. Abdomen soft nontender nondistended nonperitoneal. Consider gastritis versus esophagitis versus enteritis versus biliary colic versus less likely pancreatit is. Screening labs, trial medications. Close reassessment disposition pending results 7: 00 patient resting comfortably feeling much better after medications. Likely component of gastritis. Will refer patient to [facility] GI. Sign Out No HPI General Date/Time Provider Initiated Documentation: 08/21/22 05:22 . HPI Narrative: 32-year-old male history of recurrent abdominal discomfort, currently being scheduled for GI follow-up presents with cute onset epigastric discomfort rating to his back associate with nausea no vomiting. Normal bowel movements. Related Data Home Medications Medication Instructions Recorded Confirmed venlafaxine 225 mg tablet,extended 225 mg PO HS 10/01/21 08/21/22 release 24 hr pantoprazole 40 mg tablet,delayed 40 mg PO DAILY #30 tabs 08/21/22 release Previous Rx's Medication Instructions Recorded pantoprazole 40 mg tablet,delayed 40 mg PO DAILY #30 tabs 08/21/22 release Allergies Allergy/AdvReac Type Severity Reaction Status Date / Time No Known Drug Allergies AdvReac Unverified 08/21/22 05:26 General Stated Complaint: Abd Prob MARIZA: 3 Review of Systems Narrative: Review of Systems Constitutional: negative Eyes: negative ENT: negative Cardiovascular: negative Respiratory: negative Gastrointestinal: Abdominal pain, nausea : negative Musculoskeletal: negative Skin: negative Neurologic: negative Psych: negative PFSH All Active Problems (Updated 08/21/22 @ 07:00 by Juan Jose Lama MD) Gastritis (Acute) Medical History No significant past medical history Surgical History No significant past surgical history Social History Smoking/Tobacco Use Status: Current every day Tobacco Type: cigarettes Smoking risk assessment performed?: Yes Alcohol Intake: current Alcohol Intake frequency: a few times a month Alcohol type: beer Drug use: Never Substance use type: does not use Current gender identity: male Do you feel safe at home: Yes Do you feel safe in your relationship?: Yes Exam Narrative Exam Narrative: Physical Examination General: alert, awake, cooperative, appears uncomfortable HEENT: normocephalic, atraumatic; PERRL, EOM intact, conjunctiva normal; no nasal discharge; moist mucous membranes, oral and pharyngeal mucosa normal, tolerating secretions Neck: supple, trachea midline; full ROM Chest: normal to inspection Respiratory: normal respiratory effort, speaking in full sentences, clear to auscultation, no wheezing, rales or rhonchi Cardiac: regular rate, regular rhythm, S1S2 intact, no murmurs rubs or gallops GI: abdomen soft, non-tender, non-distended; no palpable mass or hepatosplenomegaly Skin: no lesions, rashes or trauma appreciated Neuro: AAOx3, normal speech, moving all extremities Psych: Appropriate mood and affect Course Vital Signs Vital signs: Vital Signs Temperature 36.8 C 08/21/22 05:23 Pulse 81 08/21/22 05:23 Respiratory Rate 16 08/21/22 05:23 Blood Pressure 161/100 H 08/21/22 05:23 Pulse Oximetry 100 08/21/22 05:23 Temperature 36.8 C 08/21/22 05:23 Temperature Source Oral 08/21/22 05:23 Pulse 81 08/21/22 05:23 Respiratory Rate 16 08/21/22 05:23 Respiratory Effort 08/21/22 05:23 Blood Pressure 161/100 H 08/21/22 05:23 Blood Pressure Position Sitting 08/21/22 05:23 Pulse Oximetry 100 08/21/22 05:23 Oxygen Delivery Method Room Air 08/21/22 05:23 Oxygen Flow Rate 0 08/21/22 05:23 Pain Level 9 08/21/22 05:23 Lab/Test Results Lab/Test Results: Laboratory Tests Range/Units 08/21/22 05:35 WBC (4.4-10.8) 10^3/uL 7.59 RBC (4.36-5.78) 10^6/uL 5.02 Hgb (13.5-17.5) g/dL 15.6 Hct (40.0-50.0) % 46.3 MCV (80-95) fL 92 MCH (27.0-33.0) pg 31.1 MCHC (32.0-36.0) % 33.7 RDW (11.8-14.1) % 12.1 Plt Count (130-400) 10^3/uL 222 MPV (8.0-11.0) fL 10.0 Immature Gran % 0.1 Neutrophils % 56.1 Lymphocytes % 33.6 Monocytes % 7.9 Eosinophils % 1.8 Basophils % 0.5 Nucleated RBC % (0.0-0.3) % 0.0 Absolute Neutrophils (1.2-6.7) 10^3/uL 4.25 Absolute Lymphocytes (1.2-3.4) 10^3/uL 2.55 Absolute Monocytes (0.1-0.8) 10^3/uL 0.60 Absolute Eosinophils (0.0-0.7) 10^3/uL 0.14 Absolute Basophils (0.0-0.2) 10^3/uL 0.04
[2022-08-21 06:02] LABS: ALT 46 U/L (16-63); AST 26 U/L (15-37); Albumin 4.2 g/dL (3.4-5.0); Alkaline Phosphatase 105 U/L (46-116); Anion Gap 7.8 mmol/L (3-11); BUN 8 mg/dL (7-18); Bilirubin, Total 0.6 mg/dL (0.2-1.0); CO2 29.2 mmol/L (21.0-32.0); CREATININE 0.9 mg/dL (0.70-1.30); Calcium 8.5 mg/dL (8.5-10.1); Chloride 103 mmol/L (98-107); Estimated GFR 114.93 (mL/min/1.73m2); Glucose 88 mg/dL (74-106); Lipase 71 U/L (73-393); Sodium 140 mmol/L (136-145); Total Protein 7.4 g/dL (6.4-8.2)
[2022-08-21] MEDS: Mylanta Suspension 30 ML CUP PO (06:07)
[2022-08-21] MEDS: Lidocaine 2% Viscous 15 ML CUP PO (06:08)
--- NOTE | 2022-08-21 07:04 | NUR.NOTE ---
Nursing Note: Referral Given to Care Managers - Per Dr Casiano - Patient needs referral to [facility] within the next 1-2 weeks for Gastritis - info provided to care managers
== END 2022-08-21 07:24 | disposition home or self-care (01) ==
PROVIDERS: Emergency Provider Emergency Medicine
DX: K29.00 Acute gastritis without bleeding (principal)
CPT/HCPCS: 36415; 80053; 83690; 96361; 96374; 96375; 99284; 85025; 99283; J2405

== ENCOUNTER 2023-11-01 08:47 | Emergency (ER) | payer OTHER, SELFPAY ==
[2023-11-01 08:56] VITALS: BP 143/93; PULSE 97; RESP 16; TEMP 37; O2SAT 98
[2023-11-01] MEDS: Cellulose,Oxidized 2X3 PKT 1 EACH MC (09:19)
--- NOTE | 2023-11-01 09:22 | ED.GENADUL_ITS ---
HPI General Date/Time Provider Initiated Documentation: 11/01/23 09:02 . 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 Quality described as stinging pain, no radiation to fever, numbness/tingling, endorses mild active bleeding, believes his Tdap is UTD. Severity is described as moderate. Palliating factors include direct pressure with relief of active bleeding. Provoking factors include nothing specific. Patient not anticoagulated. Related Data Home Medications Medication Instructions Recorded Confirmed venlafaxine 225 mg tablet,extended 225 mg PO HS 10/01/21 11/01/23 release 24 hr omeprazole 20 mg tablet,delayed 20 mg PO DAILY 11/01/23 11/01/23 release Allergies Allergy/AdvReac Type Severity Reaction Status Date / Time No Known Drug Allergies AdvReac Other (See Unverified 11/01/23 10:54 Comment) General Stated Complaint: Laceration MARIZA: 4 Review of Systems All systems reviewed & are unremarkable except as noted in HPI and below Exam Narrative Exam Narrative: GENERAL APPEARANCE: Well-nourished, non-toxic, awake and alert, atraumatic, no acute distress. SKIN: Warm, pink, dry, intact, without rashes/lesions/ulcerations. HEAD: Normocephalic, atraumatic, normal hair distribution for gender/age. EYES: Pupils PERRLA, EOMs intact without nystagmus, normal conjunctiva, no exudates on lids/lashes. ENT: Nares patent, no circumoral cyanosis, no facial swelling NECK: Supple, trachea midline, painless cervical ROM. LUNGS/CHEST: Non-labored respirations, normal A/P diameter, symmetrical expansion, no chest wall deformity HEART (CV/PV): Regular rate, L radial pulse 2+, no peripheral edema, no JVD. ABDOMEN: Soft, non-distended, no guarding. MSK: Normal ROM, no swelling/deformity to bilateral UEs or LEs, moving all extremities without weakness, no cyanosis, spine midline without tenderness, normal curvature. L Hand: small < 1cm avulsion at distal fingertip of L index finger, no nail bed involvement, minor capillary bleeding, NV intact diffusely, no other trauma NEURO: Mental Status AAOx4 - alert to person, place, time, events No facial droop, no forehead involvement. Motor: No focal weakness - strength 5/5 in bilateral UEs and LEs, proximal and distal, symmetric. Sensory: sensation intact to light touch globally. Gait normal: patient ambulated without ataxia into ED room. PSYCH: euthymic, cooperative, pleasant, appropriate speech Course Vital Signs Vital signs: Vital Signs Temperature 37 C 11/01/23 08:56 Pulse 97 H 11/01/23 08:56 Respiratory Rate 16 11/01/23 08:56 Blood Pressure 143/93 H 11/01/23 08:56 Pulse Oximetry 98 11/01/23 08:56 Temperature 37 C 11/01/23 08:56 Temperature Source Skin 11/01/23 08:56 Pulse 97 H 11/01/23 08:56 Respiratory Rate 16 11/01/23 08:56 Respiratory Effort Normal 11/01/23 09:21 Blood Pressure 143/93 H 11/01/23 08:56 Blood Pressure Position Sitting 11/01/23 08:56 Pulse Oximetry 98 11/01/23 08:56 Oxygen Delivery Method Room Air 11/01/23 08:56 Oxygen Flow Rate 0 11/01/23 08:56 Pain Level 8 11/01/23 08:56 Medical Decision Making This dictation utilizes [id number] dictation software and may contain unedited grammatical errors. 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 Patients' medical history: negative, otherwise healthy. Family and social history: noncontributory. Pertinent exam findings / vital signs include L Hand: small <1cm avulsion at distal fingertip of L index finger, no nail bed involvement, minor capillary bleeding, NV intact diffusely, no other trauma. Differential / pathologies of concern include avlusion laceration, not NV compromise. Diagnostic studies of: -none. Interventions of: -surgicell simple dressing. ED Course/Assessment/Plan: 33-year-old male presents with a small subcentimeter laceration avulsion to his left distal fingertip without nailbed involvement, this was dressed with a simple Surgicel layer under Telfa and Coban wrap. Counseled on return for signs of infection and to change the dressing daily and keep the area clean and dry. I counseled him on following up with his regular doctor to confirm his Tdap is up-to-date but that he could wait a day or 2 to obtain this if it was out of date. Findings not consistent with neurovascular compromise or nailbed involvement. Disposition of laceration of left index finger. Patient verbalized understanding of the plan and return to ED criteria and engaged in shared decision making. Medical Records Medical records reviewed: Yes I reviewed the patient's medical records. Quality:SDOH Health Related Social Needs: No Data to Display PFSH All Active Problems (Updated 11/01/23 @ 09:25 by SUNDAY Ospina) Laceration of left index finger (Acute) Medical History No significant past medical history Surgical History No significant past surgical history Social History Smoking/Tobacco Use Status: Current every day Tobacco Type: cigarettes Smoking risk assessment performed?: Yes Alcohol Intake: current Alcohol Intake frequency: a few times a month Alcohol type: beer Drug use: Never Substance use type: does not use Current gender identity: male Do you feel safe at home: Yes Do you feel safe in your relationship?: Yes Discharge Plan Disposition Patient Disposition: Home Condition: Stable Discharge Details Clinical Impression: Laceration of left index finger Primary Care Provider: None,None ED Provider: Ildefonso Rivas Home Meds and New Rx's Prescriptions: No Action venlafaxine 225 mg Tablet Extended Release 24hr 225 mg PO HS omeprazole 20 mg tablet,delayed release (DR/EC) 20 mg PO DAILY Discharge Instructions Instructions: Finger Laceration (ED) Additional Instructions: You were seen in the emergency department for the skin avulsion/laceration of your left index finger, we dressed it with a Surgicel dressing which is a hemostatic dressing, I placed a nonstick over the top of that and then some Coban wrap. You will need to change this dressing tomorrow, by that time it sh ould be fine with simple bandages, if it does start bleeding a little bit please just elevate and put some gentle pressure on the area for 20 to 30 minutes and that should stop bleeding. Please watch for signs of infection including spreading redness from the area, drainage of pus from the area, red streaking up the hand or arm, fever and return to the ED for any symptoms. Stand Alone Forms: Work Release Discharge Data Discharge Date/Time-TO BE ENTERED AT DEPARTURE: 11/01/23 09:34
[2023-11-01] MEDS: Acetaminophen 500 MG TAB 1000 MG PO (09:33)
[2023-11-01] MEDS: Ketorolac 10 MG TAB PO (09:33)
--- NOTE | 2023-11-05 08:41 | NUR.NOTE ---
Patient called asking for a more detailed work note. A writted note made out stating limited use of left hand in light duty, keep bandages on for 1 week. Faxed to , and copy mailed to patient. Nursing Note:
== END 2023-11-01 09:34 | disposition home or self-care (01) ==
PROVIDERS: Emergency Provider Physician Assistant
DX: S61.211A Laceration without foreign body of left index finger without damage to nail, initial encounter (principal); W26.0XXA Contact with knife, initial encounter
CPT/HCPCS: 99282; 99283

== ENCOUNTER 2023-12-29 04:10 | Emergency (ER) | payer OTHER, SELFPAY ==
[2023-12-29] VITALS (24 sets, daily range): BP systolic 123–128; BP diastolic 60–74; PULSE 72–103; RESP 15–33; TEMP 37.1; O2SAT 98–99
--- NOTE | 2023-12-29 04:00 | RT.EKG_ITS ---
APPROVED REPORT Exam: Resting ECG Reason for Exam: chest pain Patient Location: E HR:90 bpm ECG Measurements Heart Rate 90 AXIS PA 136 P 12 QRSd 86 QRS 43 QT 345 T 29 QTc 421 Conclusion Sinus rhythm... V-rate 60- [address] segment or T wave abnormalities to suggest occlusive PR
--- NOTE | 2023-12-29 04:15 | DI.RAD_ITS ---
Exam(s) XR CHEST 2V PA LATERAL EXAM: XR CHEST 2V PA LATERAL CLINICAL HISTORY: left sided chest pain. TECHNIQUE: 2D digital imaging was performed. COMPARISON: No exams were available for comparison FINDINGS: 2 views: Heart size is normal. The mediastinum is not widened. Lungs are clear. No infiltrates nor pleural effusions. IMPRESSION: No acute pulmonary findings. DATA REPOSITORY: RADIATION DOSE DELIVERED:
[2023-12-29] MEDS: Acetaminophen 500 MG TAB 1000 MG PO (04:30)
[2023-12-29] MEDS: Ketorolac 15 MG/ML VIAL IVP (04:31)
[2023-12-29 04:33] LABS: Abs Immature Grans 0.01 10^3/uL (0.0-0.06); Absolute Basophil Count 0.03 10^3/uL (0.0-0.2); Absolute Eosinophil Count 0.17 10^3/uL (0.0-0.7); Absolute Monocyte Count 0.67 10^3/uL (0.1-0.8); Absolute Neutrophil Count 4.08 10^3/uL (1.2-6.7); Basophils % 0.4; Eosinophils % 2.5; HCT 42.7 % (40.0-50.0); HGB 14.3 g/dL (13.5-17.5); Immature Grans % 0.1; Lymphocytes % 26.6; MCH 31.4 pg (27.0-33.0); MCHC 33.5 % (32.0-36.0); MCV 94 fL (80-95); MPV 9.9 fL (8.0-11.0); Monocytes % 9.9; Neutrophils % 60.5; Platelet Count 187 10^3/uL (130-400); RBC 4.56 10^6/uL (4.36-5.78); RDW-SD 41.5 fL; WBC 6.76 10^3/uL (4.4-10.8)
--- NOTE | 2023-12-29 04:41 | ED.GENADUL_ITS ---
Discharge Plan Disposition Patient Disposition: Home Condition: Good Discharge Details Clinical Impression: Musculoskeletal chest pain Primary Care Provider: Unknown,Unknown ED Provider: Kathya Baeza Home Meds and New Rx's Prescriptions: New lidocaine 5 % adhesive patch,medicated 1 patch topical DAILY Qty: 15 0RF Rx Instructions: leave on most painful area for up to 12 hrs Continued cyclobenzaprine 5 mg tablet 5 mg PO DAILY Patient Comments: PRN venlafaxine 225 mg Tablet Extended Release 24hr 225 mg PO HS omeprazole 20 mg tablet,delayed release (DR/EC) 20 mg PO DAILY Discharge Instructions Instructions: Chest Pain (ED) Additional Instructions: Tylenol and ibuprofen over the counter for pain; follow the directions on the bottle. Lidocaine patch once a day; leave in place for 12 hours. Call your primary care doctor on Sunday to schedule an appointment within the next 5 days to followup on your visit today. Return to the emergency department for new or worsening symptoms including new/different/worse pain, difficulty breathing, feeling like you are going to pass out, or if you have any other concerns. HPI General Mode of arrival: ambulatory . Date/Time Provider Initiated Documentation: 12/29/23 04:11 . Limitations to Documentation: no limitations . Information obtained by: patient . HPI Narrative: 33yo M with hx GERD presenting for acute severe left sided chest pain. Pain started suddenly around 11pm , sharp/stabing, severe 8/10, worse with deep breathing or with moving. Does not radiate anywhere including to the groin or back. Aside from pain, no difficulty breathing. No pain elsewhere. No swelling in his legs. Never experienced similar symptoms before. Tried cyclobenzaprine at home without relief. Otherwise in his usual state of with no fevers, chills, rash, cough, rhinorhea, dysuria, hematuria, numbness, tingling, weakness, or other concerns. Related Data Home Medications Medication Instructions Recorded Confirmed venlafaxine 225 mg tablet,extended 225 mg PO HS 10/01/21 12/29/23 release 24 hr omeprazole 20 mg tablet,delayed 20 mg PO DAILY 11/01/23 12/29/23 release cyclobenzaprine 5 mg tablet 5 mg PO DAILY 12/29/23 12/29/23 lidocaine 5 % topical patch 1 patch topical DAILY #15 ea 12/29/23 Previous Rx's Medication Instructions Recorded lidocaine 5 % topical patch 1 patch topical DAILY #15 ea 12/29/23 Allergies Allergy/AdvReac Type Severity Reaction Status Date / Time No Known Drug Allergies AdvReac Other (See Unverified 12/29/23 04:27 Comment) General Stated Complaint: Chest Pain MARIZA: 3 Review of Systems Narrative: see HPI Exam Narrative Exam Narrative: General: Alert, well appearing, well nourished, in no acute distress. Head: Normocephalic, atraumatic Neck: Trachea midline, ?Neck supple. ENT: ?MMM.? No oropharygeal lesions or exudate. Cardiac: ?RRR, no murmurs appreciated Resp: No respiratory distress. CTAB. Chest: Marked tenderness to palpation of lower left lateral chest. No overlying rash. Abd: ?Soft, non-distended, nontender : ?No suprapubic tenderness. No CVA tenderness. Extremities: ?No deformities.? No peripheral edema. Neurologic: GCS 15. ? Moves all extremities freely against gravity Course Vital Signs Vital signs: Vital Signs Temperature 37.1 C 12/29/23 04:15 Pulse 103 H 12/29/23 04:15 Respiratory Rate 18 12/29/23 04:15 Pulse Oximetry 98 12/29/23 04:15 Temperature 37.1 C 12/29/23 04:15 Temperature Source Temporal Artery Scan 12/29/23 04:15 Pulse 103 H 12/29/23 04:15 Respiratory Rate 17 12/29/23 04:19 Respiratory Effort Normal, Non-Labored 12/29/23 04:19 Respiratory Depth Normal 12/29/23 04:19 Respiratory Pattern Normal 12/29/23 04:19 Blood Pressure Position Supine 12/29/23 04:15 Pulse Oximetry 98 12/29/23 04:15 Pain Level 8 12/29/23 04:19 Lab/Test Results Lab/Test Results: Laboratory Tests Range/Units 12/29/23 04:29 WBC (4.4-10.8) 10^3/uL 6.76 RBC (4.36-5.78) 10^6/uL 4.56 Hgb (13.5-17.5) g/dL 14.3 Hct (40.0-50.0) % 42.7 MCV (80-95) fL 94 MCH (27.0-33.0) pg 31.4 MCHC (32.0-36.0) % 33.5 RDW (11.8-14.1) % 12.0 Plt Count (130-400) 10^3/uL 187 MPV (8.0-11.0) fL 9.9 Immature Gran % 0.1 Neutrophils % 60.5 Lymphocytes % 26.6 Monocytes % 9.9 Eosinophils % 2.5 Basophils % 0.4 Nucleated RBC % (0.0-0.3) % 0.0 Absolute Neutrophils (1.2-6.7) 10^3/uL 4.08 Absolute Lymphocytes (1.2-3.4) 10^3/uL 1.80 Absolute Monocytes (0.1-0.8) 10^3/uL 0.67 Absolute Eosinophils (0.0-0.7) 10^3/uL 0.17 Absolute Basophils (0.0-0.2) 10^3/uL 0.03 Medical Decision Making 33yo M with hx GERD presenting for acute severe left sided chest pain. Pain started suddenly around 11pm , sharp/stabing, severe 8/10, worse with deep breathing or with moving. Constant since onset Does not radiate anywhere including to the groin or back. Aside from pain, no difficulty breathing. Slightly tachycardiac on arrival, vital signs otherwise reassuring. On exam he has exquisite tenderness to palpation of his left lower lateral chest, no overlying skin findings to suggest shingles. EKG NSR, appropriate intervals, no ST segment or T wave abnormalities to suggest occlusive MN. Suspect most likely MSK etiology based on exam however will evaluate for severe/emergent pathologies with labs, CXR. Given tylenol and toradol for pain. CXR independently reviewed, no focal pneumonia or large pneumothorax on my view, agree with radiology read below. Labs reviewed as below, CBC reassuring with no leukcytosis or anemia, CMP with mild hypocalcemia otherwise unremarkable (oral replacement ordered), troponin negative in the setting of ~6 hours of constant pain; would not further pursue acute coronary syndromes. Dimer negative; would not further pursue pulmonary embolism with CT imaging. On reassessment he reports pain significantly improved. Advised symptomatic treatment at home, prescribed lidocaine patch. Discharged home; discharge instructions and return precautions were reviewed with patient who verbalized understanding. All questions were answered and he is in full agreement with the plan. Imaging Data Radiologic Study: Imaging: X-Ray Radiologist's impression: IMPRESSION: No acute findings. Lab Data Lab results reviewed: Yes I reviewed the patient's lab results. Labs: Laboratory Tests Range/Units 12/29/23 12/29/23 04:29 07:21 WBC (4.4-10.8) 10^3/uL 6.76 RBC (4.36-5.78) 10^6/uL 4.56 Hgb (13.5-17.5) g/dL 14.3 Hct (40.0-50.0) % 42.7 MCV (80-95) fL 94 MCH (27.0-33.0) pg 31.4 MCHC (32.0-36.0) % 33.5 RDW (11.8-14.1) % 12.0 Plt Count (130-400) 10^3/uL 187 MPV (8.0-11.0) fL 9.9 Immature Gran % 0.1 Neutrophils % 60.5 Lymphocytes % 26.6 Monocytes % 9.9 Eosinophils % 2.5 Basophils % 0.4 Nucleated RBC % (0.0-0.3) % 0.0 Absolute Neutrophils (1.2-6.7) 10^3/uL 4.08 Absolute Lymphocytes (1.2-3.4) 10^3/uL 1.80 Absolute Monocytes (0.1-0.8) 10^3/uL 0.67 Absolute Eosinophils (0.0-0.7) 10^3/uL 0.17 Absolute Basophils (0.0-0.2) 10^3/uL 0.03 D-Dimer (<500) ng/mlFEU 448 Sodium (136-145) mmol/L 142 Potassium (3.5-5.1) mmol/L 4.4 Chloride (98-107) mmol/L 108 H Carbon Dioxide (21.0-32.0) mmol/L 28.3 Anion Gap (3-11) mmol/L 5.7 BUN (7-18) mg/dL 14 Creatinine (0.70-1.30) mg/dL 0.9 Est GFR (CKD-EPI 2020) (mL/min/1.73m2) 114.22 Glucose (74-106) mg/dL 98 Calcium (8.5-10.1) mg/dL 8.1 L Total Bilirubin (0.2-1.0) mg/dL 0.4 AST (15-37) U/L 28 ALT (16-63) U/L 51 Alkaline Phosphatase (46-116) U/L 90 Troponin I (< or =60) ng/L < 50 Cancelled Total Protein (6.4-8.2) g/dL 6.9 Albumin (3.4-5.0) g/dL 3.7 Quality:SDOH Health Related Social Needs: No Data to Display PFSH All Active Problems (Updated 12/29/23 @ 05:53 by Kathya Baeza MD) Musculoskeletal chest pain (Acute) Laceration of index finger (Acute) Medical History No significant past medical history Surgical History No significant past surgical history Social History Smoking/Tobacco Use Status: Current every day Tobacco Type: cigarettes and e- cigarettes Smoking risk assessment performed?: Yes Alcohol Intake: current Alcohol Intake frequency: a few times a month Alcohol type: beer Drug use: Never Substance use type: does not use Housing: apartment Current gender identity: male Do you feel safe at home: Yes Do you feel safe in your relationship?: Yes
[2023-12-29 04:54] LABS: ALT 51 U/L (16-63); AST 28 U/L (15-37); Albumin 3.7 g/dL (3.4-5.0); Alkaline Phosphatase 90 U/L (46-116); Anion Gap 5.7 mmol/L (3-11); BUN 14 mg/dL (7-18); Bilirubin, Total 0.4 mg/dL (0.2-1.0); CO2 28.3 mmol/L (21.0-32.0); CREATININE 0.9 mg/dL (0.70-1.30); Calcium 8.1 mg/dL (8.5-10.1); Chloride 108 mmol/L (98-107); Estimated GFR 114.22 (mL/min/1.73m2); Glucose 98 mg/dL (74-106); Potassium 4.4 mmol/L (3.5-5.1); Sodium 142 mmol/L (136-145); Total Protein 6.9 g/dL (6.4-8.2); Troponin I < 50 ng/L (< or =60)
[2023-12-29 05:19] LABS: D-Dimer 448 ng/mlFEU (<500)
[2023-12-29] MEDS: Lidocaine 5% Patch 1 PATCH TP (05:23)
[2023-12-29] MEDS: Calcium Carbonate *TUMS* 500 MG CHEW (05:27)
--- NOTE | 2023-12-29 06:28 | DI.VRAD_ITS ---
PROCEDURE INFORMATION: Exam: XR Chest Exam date and time: 12/29/2023 4:56 AM Age: 33 years old Clinical indication: Other: Left sided chest pain TECHNIQUE: Imaging protocol: Radiologic exam of the chest. Views: 2 views. COMPARISON: CT ABDOMEN PELVIS WO 04/27/2022 2:39 AM FINDINGS: Lungs: Unremarkable. No consolidation. Pleural spaces: Unremarkable. No pleural effusion. No pneumothorax. Heart/Mediastinum: Unremarkable. No cardiomegaly. Bones/joints: Unremarkable. IMPRESSION: No acute findings. Dictated and Authenticated by: Kj Szymanski MD. Ordering:ROSARIO Rasheed MD
== END 2023-12-29 06:40 | disposition home or self-care (01) ==
PROVIDERS: Emergency Provider Student in an Organized Health Care Education/Training Program
DX: R07.89 Other chest pain (principal)
CPT/HCPCS: 80053; 93005; 96374; 99284; 71046; 84484; 85025; 85379; 93010; 99283; J1885